=== PATIENT | male | born 1965 | race Caucasian/White ===

== ENCOUNTER → 2022-05-18 | Outpatient (CLI) | payer OTHER | LOC: M PLAIMG 09:36 | PROVIDERS: ATTEND Internal Medicine Cardiovascular Disease | DX: R91.8 Other nonspecific abnormal finding of lung field (principal); J43.9 Emphysema, unspecified ==

== ENCOUNTER → 2025-05-24 | Outpatient (CLI) | payer OTHER | LOC: M RAD 07:36 | PROVIDERS: ATTEND Physician Assistant Medical | DX: R93.421 Abnormal radiologic findings on diagnostic imaging of right kidney (principal); R74.8 Abnormal levels of other serum enzymes ==